=== PATIENT | female | born 1965 | race Caucasian/White ===

== ENCOUNTER → 2016-11-04 | Outpatient (CLI) | payer BC ==
--- NOTE | 2016-11-04 17:09 | KCIC ---
Bilateral digital screening mammograms with CAD: HISTORY Routine screening. COMPARISON Comparison is made to previous studies dated 10/18/2015 and 10/13/2014. FINDINGS Breast density category C. The skin and nipples show no abnormalities. No abnormal lymph nodes are seen in the axilla. The breast parenchyma shows heterogeneous density. There appear to be some clustered calcifications at the 10 o'clock B position of the right breast. These may represent calcium oxalate crystals but further evaluation with cone magnification views in CC and true lateral projections is recommended. There are no other dominant masses, suspicious calcifications or architectural distortions. IMPRESSION Clustered calcifications at the 10 o'clock B position of the right breast. These may represent calcium oxalate crystals. Recommend further evaluation with coned magnification views in CC and true lateral projections. This study was interpreted with the benefit of Computerized Aided Detection (CAD). Mammography is not 100% sensitive in detecting breast cancer. Therefore, a self breast exam and a clinical breast exam are very important. A negative mammogram does not negate a clinically suspicious finding and should not result in a delay in biopsying a clinically suspicious abnormality. BI-RADS category 0: Incomplete. Additional imaging is recommended. This patient's information has been entered into a reminder system for the patient to be notified with the results of this examination and a target date for her next mammograms. Electronically signed by: Mary Lan MD (Nov 04, 2016 17:06:40)
== END | disposition home or self-care (01) ==
LOC: KCIC MAMMO 15:33
PROVIDERS: ATTEND Family Medicine
DX: Z12.31 Encounter for screening mammogram for malignant neoplasm of breast (principal); R92.1 Mammographic calcification found on diagnostic imaging of breast
CPT/HCPCS: G0202; 77067

== ENCOUNTER → 2016-11-08 | Outpatient (CLI) | payer BC ==
--- NOTE | 2016-11-08 17:05 | KCIC ---
Diagnostic digital mammograms right breast: Reason for examination: Right breast calcifications on screening. Comparison is made to mammographic exam dated 11/04/2016. Coned magnification views of the right breast were obtained with attention to the 10 o'clock position posteriorly. The cluster of pleomorphic calcifications appears to be present. DCIS cannot be excluded and further evaluation with stereotactic biopsy is recommended. Impression: Clustered calcifications at the 10 o'clock position posteriorly in the right breast. DCIS cannot be excluded and further evaluation with stereotactic biopsy is recommended. The patient was notified of these findings at the time of the examination and was instructed to followup with Dr. William to schedule biopsy. Attempt was made to call Dr. William office however the office was closed. Staff at [facility] will try to contact Dr. William with this information when the office reopens on Friday. Electronically signed by: Mary Lan MD (Nov 08, 2016 17:03:35)
== END | disposition home or self-care (01) ==
LOC: KCIC MAMMO 08:00
PROVIDERS: ATTEND Family Medicine
DX: R92.8 Other abnormal and inconclusive findings on diagnostic imaging of breast (principal)
CPT/HCPCS: G0206; 77065